=== PATIENT | female | born 1950 | race Caucasian/White ===

== ENCOUNTER → 2017-06-08 | Outpatient (CLI) | payer MEDICARE, BC ==
[~2017-06-08] MED LIST: ALPR1; AMIT50; AMOX500 PO; BENZ100A PO; BISHYD5 PO; BUPR100; FLUO90; HYDACE7.5; HYDR1TAB94 PO; IBUHYD; IBUP800 PO; LISI20 PO; LISI5 PO; LORA1 PO; METH5; ONDA4ODT MM; Oxycodone HCl20 M1 PO; ROFE25 PO
[2017-06-10 15:57] LABS: HPV Genotype 16 Not Detected (NOTDET); HPV Genotype 18 Not Detected (NOTDET)
[2017-06-15 10:07] LABS: HPV High Risk Other Not Detected (NOTDET)
== END ==
LOC: LAB 13:50
PROVIDERS: Obstetrics & Gynecology
DX: Z01.419 Encounter for gynecological examination (general) (routine) without abnormal findings (principal)
CPT/HCPCS: 87624; G0123

== ENCOUNTER → 2017-08-19 | Outpatient (CLI) | payer MEDICARE, BC | LOC: LAB 11:19 → LAB SHORT 11:19 | DX: R30.0 Dysuria (principal) | CPT/HCPCS: 87077; 87086; 87186 ==

== ENCOUNTER → 2017-08-21 | Outpatient (CLI) | payer MEDICARE, BC ==
[2017-08-21 12:23] LABS: BASOPHILS PERCENT AUTO 0 % (0-2); EOSINOPHILS PERCENT AUTO 0 % (0-6); Hematocrit 33.6 % (33.0-51.0); Hemoglobin 11.7 g/dL (11.5-16.0); IMMATURE GRAN ABSOLUTE AUTO 0.04 K/mm3 (0.00-0.10); IMMATURE GRAN PERCENT AUTO 0 % (0-1); MONOCYTES ABSOLUTE AUTO 0.75 K/mm3 (0.16-1.47); MONOCYTES PERCENT AUTO 8 % (4-13); Mean Corpuscular HGB 29.6 pg (26.0-34.0); Mean Corpuscular HGB Conc 34.8 g/dL (31.5-36.5); Mean Corpuscular Volume 85 fL (80-100); Mean Platelet Volume 11.6 fL (9.1-12.4); RDW Standard Deviation 36.9 fL (35.1-46.3); Red Blood Cell Count 3.95 M/mm3 (3.80-5.20); White Blood Cell Count 9.46 K/mm3 (4.00-11.30)
[2017-08-21 12:24] LABS: Anion Gap 9 mmol/L (6-16); Blood Urea Nitrogen 5 mg/dL (8-24); Bun/Creatinine Ratio 5.4 (12.0-20.0); CO2, Blood 27 mmol/L (21-32); Chloride, Blood 93 mmol/L (98-108); Creatinine, Blood 0.93 mg/dL (0.40-1.00); Glomerular Filtration Rate >60 (60-); Glucose, Blood 101 mg/dL (70-99); Potassium, Blood 3.8 mmol/L (3.5-5.5); Sodium, Blood 129 mmol/L (136-145)
[2017-08-21 12:55] LABS: BASOPHILS ABSOLUTE AUTO 0.03 K/mm3 (0.00-0.23); EOSINOPHILS ABSOLUTE AUTO 0.04 K/mm3 (0.00-0.68); LYMPHOCYTES PERCENT AUTO 10 % (21-46); NEUTROPHILS ABSOLUTE AUTO 7.74 K/mm3 (1.96-9.15); NEUTROPHILS PERCENT AUTO 82 % (41-73)
[2017-08-21 13:05] LABS: Platelet Count 106 K/mm3 (150-400)
== END ==
LOC: LAB SHORT 12:14 → LAB EV 12:14
PROVIDERS: Physician Assistant Surgical
DX: R10.32 Left lower quadrant pain (principal); R30.0 Dysuria
CPT/HCPCS: 80048; 85025; 87086

== ENCOUNTER 2018-07-12 10:12 | Emergency (ER) | payer MEDICARE, BC ==
[~2018-07-12] VITALS: Ht 154.9 cm; Wt 86.2 kg
[2018-07-12] MEDS ORDERED: OXYC10ER PO (10:39)
[2018-07-12] MEDS ORDERED: ALPR.5CR (10:40)
[2018-07-12] MEDS ORDERED: LINZESS145 MCG PO (10:40)
[2018-07-12] MEDS ORDERED: OXYCODONE HCL 5 MG (10:40)
[2018-07-12] MEDS ORDERED: CHOL10002 (10:41)
[2018-07-12] MEDS ORDERED: VALA500 PO (10:44)
[2018-07-12] MEDS ORDERED: BUPR150ER PO (10:44)
[2018-07-12 10:45] LABS: BASOPHILS ABSOLUTE AUTO 0.05 K/mm3 (0.00-0.23); BASOPHILS PERCENT AUTO 1 % (0-2); EOSINOPHILS ABSOLUTE AUTO 0.15 K/mm3 (0.00-0.68); EOSINOPHILS PERCENT AUTO 2 % (0-6); Hematocrit 37.3 % (33.0-51.0); Hemoglobin 12.2 g/dL (11.5-16.0); IMMATURE GRAN ABSOLUTE AUTO 0.03 K/mm3 (0.00-0.10); IMMATURE GRAN PERCENT AUTO 0 % (0-1); LYMPHOCYTES ABSOLUTE AUTO 1.45 K/mm3 (0.84-5.20); LYMPHOCYTES PERCENT AUTO 18 % (21-46); MONOCYTES ABSOLUTE AUTO 0.67 K/mm3 (0.16-1.47); MONOCYTES PERCENT AUTO 8 % (4-13); Mean Corpuscular HGB 30.3 pg (26.0-34.0); Mean Corpuscular HGB Conc 32.7 g/dL (31.5-36.5); Mean Corpuscular Volume 93 fL (80-100); NEUTROPHILS ABSOLUTE AUTO 5.94 K/mm3 (1.96-9.15); NEUTROPHILS PERCENT AUTO 72 % (41-73); RDW Coefficient Variation 12.8 % (11.7-14.2); Red Blood Cell Count 4.02 M/mm3 (3.80-5.20); White Blood Cell Count 8.29 K/mm3 (4.00-11.30)
[2018-07-12 10:52] LABS: Mean Platelet Volume 11.1 fL (9.1-12.4)
[2018-07-12 10:53] LABS: Platelet Count 273 K/mm3 (150-400)
[2018-07-12 10:57] LABS: Alanine Aminotransfer (ALT/SGP 28 U/L (12-78); Albumin, Blood 3.8 g/dL (3.4-5.0); Alk Phos 61 U/L (50-136); Anion Gap 6 mmol/L (6-16); Aspartate Aminotrans (AST/SGOT 20 U/L (12-37); Bilirubin, Total 0.3 mg/dL (0.1-1.0); Blood Urea Nitrogen 18 mg/dL (8-24); Bun/Creatinine Ratio 25.5 (12.0-20.0); CO2, Blood 27 mmol/L (21-32); Calcium, Blood 9.5 mg/dL (8.5-10.1); Chloride, Blood 104 mmol/L (98-108); Creatinine, Blood 0.71 mg/dL (0.40-1.00); Globulin, Blood 3.9 g/dL (2.2-4.0); Glomerular Filtration Rate >60 (60-); Glucose, Blood 131 mg/dL (70-99); Magnesium, Blood 1.9 mg/dL (1.6-2.4); Potassium, Blood 3.7 mmol/L (3.5-5.5); Sodium, Blood 137 mmol/L (136-145); Total Protein, Blood 7.7 g/dL (6.4-8.2); Troponin I <0.015 ng/mL (0.000-0.040)
== END 2018-07-12 13:05 | disposition home or self-care (01) ==
LOC: ER 10:12
PROVIDERS: Emergency Medicine
DX: R07.89 Other chest pain (principal); R00.2 Palpitations; Z88.1 Allergy status to other antibiotic agents; Z88.8 Allergy status to other drugs, medicaments and biological substances; Z79.899 Other long term (current) drug therapy; Z79.891 Long term (current) use of opiate analgesic; I10 Essential (primary) hypertension; Z87.891 Personal history of nicotine dependence
CPT/HCPCS: 36415; 71046; 80053; 83735; 84484; 85025; 93005; 93010; 93225; 93226; 99285-25

== ENCOUNTER → 2018-10-15 | Outpatient (CLI) | payer MEDICARE, BC ==
[~2018-10-15] MED LIST changes: +ALPR.5CR; +BUPR150ER PO; +CHOL10002; +LINZESS145 MCG PO; +OXYC10ER PO; +OXYCODONE HCL 5 MG; +VALA500 PO
== END ==
LOC: LAB 09:30 → LAB SHORT 09:30
DX: R30.0 Dysuria (principal)
CPT/HCPCS: 87077; 87086; 87186

== ENCOUNTER → 2019-01-19 | Outpatient (CLI) | payer MEDICARE, BC | END | disposition home or self-care (01) | LOC: LAB SHORT 18:39 → LAB 18:39 | DX: N39.0 Urinary tract infection, site not specified (principal) | CPT/HCPCS: 87086 ==

== ENCOUNTER → 2019-02-06 | Outpatient (CLI) | payer MEDICARE, BC ==
[2019-02-06 12:26] LABS: U Amphetamine Screen Not Detected; U Barbituate Screen Not Detected; U Benzodiazapine Screen DETECTED; U Buprenorphine Screen Not Detected; U Cannabinoids Screen Not Detected; U Cocaine Screen Not Detected; U Methadone Screen Not Detected; U Methamphetamine Screen Not Detected; U Opiates Screen Not Detected; U Oxycodone Screen DETECTED; U Phencyclidine Screen Not Detected; U Propoxyphene Screen Not Detected
== END | disposition home or self-care (01) ==
LOC: LAB 08:40 → LAB SHORT 08:40
PROVIDERS: Internal Medicine
DX: Z51.81 Encounter for therapeutic drug level monitoring (principal); Z79.891 Long term (current) use of opiate analgesic

== ENCOUNTER → 2019-02-16 | Outpatient (CLI) | payer MEDICARE, BC | END | disposition home or self-care (01) | LOC: PLD 12:12 → LAB SHORT 12:12 | DX: L70.0 Acne vulgaris (principal) | CPT/HCPCS: 88305 ==

== ENCOUNTER 2020-01-29 07:52 | Day surgery (SDC) | payer MEDICARE, BC ==
[2020-01-29] MEDS ORDERED: ALPR1 PO (11:13)
[2020-01-29] MEDS ORDERED: ZESTRIL40 M1 PO (11:14)
[2020-01-29] MEDS ORDERED: BUPR150ER PO (11:14)
[2020-01-29] MEDS ORDERED: BISOPROLOL-HCT1 EACH PO (11:15)
[2020-01-29] MEDS ORDERED: BUPRENORPHINE HC8 MG SL (11:16)
[2020-01-30] MEDS ORDERED: PROP10 PO (11:15)
== END 2020-01-29 22:56 | disposition home or self-care (01) ==
LOC: MOI US 07:52 → MOI MAM 08:00 → MOI US 08:00 → MOI MAM 02-28 08:00
DX: C50.212 Malignant neoplasm of upper-inner quadrant of left female breast (principal)
CPT/HCPCS: 19285; 77065

== ENCOUNTER 2020-02-05 10:20 | Day surgery (SDC) | payer MEDICARE, BC ==
[~2020-02-05] VITALS: Ht 154.9 cm; Wt 81.8 kg
[~2020-02-05 10:20] MED LIST changes: +ALPR1 PO; +BISOPROLOL-HCT1 EACH PO; +BUPRENORPHINE HC8 MG SL; +PROP10 PO; +ZESTRIL40 M1 PO
--- NOTE | 2020-02-05 15:17 | NUR ---
02/05/20 1517 ANJEL VARGHESE PATIENT TO STEP DOWN UNIT. PATIENT REPORTS PAIN 10/10 - MEDICATED WITH IV FENTANYL PER MD ORDERS. PATIENT TOLERATING SIPS OF CLEAR LIQUIDS. VSS - EXCEPT FOR HYPERTENSION (168/82 -188/92) PT BASELINE 170/62 IN PRE OP. PATIENT'S SON TO BEDSIDE.
== END 2020-02-05 15:55 | disposition home or self-care (01) ==
LOC: ORSCSDS 10:20 → NM 11:30 → ORSCSDS 13:00
PROVIDERS: Surgery
PROC: 07B60ZX Excision of Left Axillary Lymphatic, Open Approach, Diagnostic (ICD-10-PCS; principal; 2020-02-05 13:00)
PROC: 0HBU0ZZ Excision of Left Breast, Open Approach (ICD-10-PCS; principal; 2020-02-05 13:00)
PROC: 0HHU0NZ Insertion of Tissue Expander into Left Breast, Open Approach (ICD-10-PCS; principal; 2020-02-05 13:00)
PROC: 0HBU0ZX Excision of Left Breast, Open Approach, Diagnostic (ICD-10-PCS; principal; 2020-02-05 13:00)
DX: C50.912 Malignant neoplasm of unspecified site of left female breast (principal); I10 Essential (primary) hypertension; Z87.891 Personal history of nicotine dependence; K21.9 Gastro-esophageal reflux disease without esophagitis; F43.10 Post-traumatic stress disorder, unspecified; Z79.899 Other long term (current) drug therapy
CPT/HCPCS: 38792; 76098; A9520; J0690; J1100; J1885; J2250; J2405; J2704; J3010; J7040; Q9968

== ENCOUNTER 2020-02-08 09:03 | Day surgery (SDC) | payer MEDICARE, BC ==
--- NOTE | 2020-02-08 09:58 | NUR ---
PT VERY AXIOUS, TEARFUL OFF AND ON. REPORTS ATE CAKE AND HAD COFFEE TO EAT THIS AM, THAT SHE WAS NOT TOLD TOLD THAT THERE WOULD BE SEDATION FOR THIS PROCEDURE. SPOKE WITH DR. AVILA. SHE REPORTS WILL CONTINUE WITHOUT SEDATION FOR PATIENT. History, Chart, Medications and Allergies reviewed before start of procedure.
--- NOTE | 2020-02-08 11:44 | NUR ---
Patient up to Ambulate independently. Gait steady. Discharge instructions reviewed with patient. Patient verbalizes understanding. Copy given to patient to take home. Discharged via AMBULATION to private car for ride home.
--- NOTE | 2020-02-08 11:48 | NUR ---
LATE ENTRY 1038 RN MONITORED VITAL SIGNS DURING PROCEDURE. 1038 98% HR 67 RR 22 BP 199/100 NOTIFIED OF BP 1040 98% HR 67 RR 20 BP 199/100 1045 97% HR 70 RR 20/BP 191/75 1050 98% HR 68 RR 20 BP 190/78 1O53 FENTANYL 50 MCG IV ADMINISTERED FOR PAIN ORDERED BY DR. AVILA. 1055 98% HR 70 RR 18 BP 186/76 PT TOLERATED PROCEDURE WELL.
== END 2020-02-08 22:55 | disposition home or self-care (01) ==
LOC: ORSCMMR 09:03 → ORD 12:00 → ORSCMMR 12:00
PROVIDERS: Surgery
PROC: 0WH803Z Insertion of Infusion Device into Chest Wall, Open Approach (ICD-10-PCS; principal; 2020-02-08 12:00)
DX: C50.912 Malignant neoplasm of unspecified site of left female breast (principal); E66.01 Morbid (severe) obesity due to excess calories; Z68.35 Body mass index [BMI] 35.0-35.9, adult
CPT/HCPCS: C1728; J3010

== ENCOUNTER → 2020-09-11 | Outpatient (CLI) | payer MEDICARE, BC | LOC: LAB 08:26 → LAB SHORT 08:26 | DX: R31.0 Gross hematuria (principal) | CPT/HCPCS: 87086 ==

== ENCOUNTER → 2020-12-29 | Outpatient (CLI) | payer MEDICARE, BC ==
[2020-12-29 10:01] LABS: Anion Gap 7 mmol/L (6-16); Blood Urea Nitrogen 6 mg/dL (8-24); Bun/Creatinine Ratio 7.7 (12.0-20.0); CO2, Blood 30 mmol/L (21-32); Calcium, Blood 8.8 mg/dL (8.5-10.1); Chloride, Blood 90 mmol/L (98-108); Creatinine, Blood 0.78 mg/dL (0.40-1.00); Glomerular Filtration Rate >60 (60-); Glucose, Blood 103 mg/dL (70-99); Potassium, Blood 3.6 mmol/L (3.5-5.5); Sodium, Blood 127 mmol/L (136-145)
== END ==
LOC: LAB 09:53 → LAB SHORT 09:53
PROVIDERS: Physician Assistant
DX: E86.0 Dehydration (principal)
CPT/HCPCS: 80048

== ENCOUNTER → 2021-05-21 | Outpatient (CLI) | payer MEDICARE, BC ==
[2021-05-21 15:59] LABS: Microalbumin, Urine Quant. 5.77 mg/L (0.000-20.000); Protein, Urine Quantitative 6.9 mg/dL (0.0-11.9)
== END | disposition home or self-care (01) ==
LOC: LAB FUT 05-20 10:50 → LAB 14:31 → LAB SHORT 14:31
PROVIDERS: Internal Medicine Nephrology
DX: N18.2 Chronic kidney disease, stage 2 (mild) (principal); D63.1 Anemia in chronic kidney disease; N25.81 Secondary hyperparathyroidism of renal origin; E55.9 Vitamin D deficiency, unspecified; E78.00 Pure hypercholesterolemia, unspecified; D51.8 Other vitamin B12 deficiency anemias; D52.8 Other folate deficiency anemias; D50.9 Iron deficiency anemia, unspecified; G60.9 Hereditary and idiopathic neuropathy, unspecified; R76.9 Abnormal immunological finding in serum, unspecified; R94.5 Abnormal results of liver function studies
CPT/HCPCS: 81050; 82043; 84156; 84300

== ENCOUNTER 2021-09-12 09:05 | Day surgery (SDC) | payer MEDICARE, BC ==
[~2021-09-12] VITALS: Ht 154.9 cm; Wt 80.1 kg
[2021-09-12] MEDS ORDERED: Bisoprolol Fuma10 MG PO (09:35)
[2021-09-12] MEDS ORDERED: BUPRENORPHINE HC8 MG SL (09:36)
[2021-09-12] MEDS ORDERED: LINZESS145 MCG PO (09:38)
--- NOTE | 2021-09-12 12:24 | NUR ---
09/12/21 1224 KAREN MADDOX PT HAVING PAIN- NOTED IN FINGER. SHE STATES THAT SHE DOES NOT NEED OR WANT ANYTHING FOR PAIN. SHE TELLS DR. CAMACHO THAT SHE IS UNABLE TO TAKE TYLENOL FOR PAIN SHE IS ALLERGIC TO IT. SHE STATES THAT SHE HAS MEDICATION AT HOME THAT SHE CAN TAKE- SUBLOCADE. SHE STATES THAT AT DISCHARGE HER PAIN IS A 5/10. SHE EXPECTS PAIN THEY CUT ON HER FINGER. SHE DOES NOT APPEAR TO BE IN ANY DISTRESS. SHE IS SMILING AND LAUGHING.
== END 2021-09-12 12:15 | disposition home or self-care (01) ==
LOC: ORSCSDS 09:05
PROVIDERS: Orthopaedic Surgery
PROC: 0LB80ZZ Excision of Left Hand Tendon, Open Approach (ICD-10-PCS; principal; 2021-09-12 10:30)
DX: M67.442 Ganglion, left hand (principal); I10 Essential (primary) hypertension; K21.9 Gastro-esophageal reflux disease without esophagitis; F43.10 Post-traumatic stress disorder, unspecified; Z79.899 Other long term (current) drug therapy
CPT/HCPCS: 88304; J0690; J1100; J2250; J2405; J2704; J3010; J7120

== ENCOUNTER → 2022-06-09 | Outpatient (CLI) | payer MEDICARE, BC ==
[~2022-06-09] MED LIST changes: +Bisoprolol Fuma10 MG PO
== END | disposition home or self-care (01) ==
LOC: PLD 10:01 → LAB SHORT 10:01
DX: L82.1 Other seborrheic keratosis (principal)
CPT/HCPCS: 88305

== ENCOUNTER → 2023-02-04 | Outpatient (CLI) | payer MEDICARE, BC | LOC: LAB SHORT 11:07 → LAB 11:07 | DX: N39.0 Urinary tract infection, site not specified (principal) | CPT/HCPCS: 87077; 87086; 87186 ==